=== PATIENT | male | born 1980 | race Caucasian/White ===

== ENCOUNTER 2020-05-15 12:01 | Emergency (ER) | payer MEDICAID, SELFPAY ==
[2020-05-15 12:02] VITALS: BP 171/130; PULSE 82; RESP 16; TEMP 36.3; O2SAT 100; BMI 36.1
[2020-05-15 12:03] VITALS: BP 171/130; PULSE 82; RESP 16; TEMP 36.3; O2SAT 100
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
--- NOTE | 2020-05-15 13:10 | ED.DEP ---
ED Disposition - Plan for ED Patient: Disposition: Home or Assisted Living Instructions: ED Hand Sprain Prescriptions: Cephalexin [Keflex] 500 mg PO Q6 #40 cap Prescription Printed Referrals: Care Physician,No Primary [Primary Care Provider] - Balaji Morrison MD [STAFF PHYSICIAN] - 3-5 Days
[2020-05-15 13:19] VITALS: PULSE 89; RESP 16; O2SAT 98
== END 2020-05-15 13:19 | disposition home or self-care (01) ==
PROVIDERS: Emergency Provider Emergency Medicine
DX: S63.92XA Sprain of unspecified part of left wrist and hand, initial encounter (principal); M79.89 Other specified soft tissue disorders; V43.52XA Car driver injured in collision with other type car in traffic accident, initial encounter; Y93.9 Activity, unspecified; Y92.9 Unspecified place or not applicable; Y99.9 Unspecified external cause status; I10 Essential (primary) hypertension; Z72.0 Tobacco use
CPT/HCPCS: 73130; 99283